=== PATIENT | male | born 1965 | race Caucasian/White ===

== ENCOUNTER 2024-01-12 09:00 | Emergency (ER) | payer OTHER, BC, SELFPAY ==
--- NOTE | ~2024-01-12 | XR_ITS ---
EXAMINATION: XR HAND, RIGHT CLINICAL INFORMATION: Third finger laceration. COMPARISON: None available. TECHNIQUE: PA, lateral, and oblique views of the right hand. FINDINGS: Soft tissue swelling and irregularity overlies the tip of the third digit but there is no evidence for an underlying radiopaque foreign body, fracture, dislocation or destructive process. Healed fractures of the fourth and fifth metacarpals incidentally noted. There is advanced degenerative change at the first CMC joint. XR/XR hand RT min 3V IMPRESSION: Soft tissue alterations as described without an acute fracture.
[2024-01-12 09:19] VITALS: BP 187/105; PULSE 79; RESP 19; TEMP 36.6; O2SAT 98; BMI 34.7
--- NOTE | 2024-01-12 09:41 | ED_ITS ---
HPI - Wound/Laceration General Chief Complaint: Wound/Laceration Stated Complaint: Finger lac Time Seen by Provider: 01/12/24 09:28 Source: patient Mode of arrival: ambulatory Limitations: no limitations History of Present Illness HPI narrative: 58 yo right hand dominant male presents to the ER for evaluation of a laceration to the right middle finger at work just prior to arrival. He works for a [employer], an [employer] and A piece of glass cut the distal portion of his right middle finger. States there was a lot of bleeding and they use the 1st aid kit with a clotting powder which helps stop the bleeding. He denies any numbness or tingling but has pain in the finger. He is able to fully extend and bend the finger. he has not on any blood thinners. Does not think there is any piece of glass stuck in the wound itself. Onset (ago): hour(s) Extremity Location: right: hand ( Third digit) Place: work Patient tetanus UTD: Yes Context: accidental Associated symptoms: pain Treatments prior to arrival: bandage Related Data Previous Rx's ?Medication ?Instructions ?Recorded ibuprofen 600 mg tablet 600 mg PO Q8H PRN pain #14 tabs 01/12/24 Allergies Allergy/AdvReac Type Severity Reaction Status Date / Time No Known Allergies Allergy Verified 01/12/24 09:20 Review of Systems Review of Systems: Yes all other systems are reviewed and are negative [facility] Social History Social History Advance Directives: No Advance Directives Information Provided: No Physical Exam Vital Signs: Vital Signs: Last Vital Signs Temp 98.2 F 01/12/24 11:46 Pulse 80 01/12/24 11:46 Resp 18 01/12/24 11:46 BP 150/80 H 01/12/24 11:46 Pulse Ox 99 01/12/24 11:46 O2 Del Method Room Air 01/12/24 11:46 BMI result Body Mass Index 34.7 Appearance: Alert. Oriented X3. No acute distress. HEENT: normal inspection CVS: Normal heart rate and rhythm. Pulses normal. Respiratory: No respiratory distress. Skin: Skin warm and dry. Normal skin color. Normal skin turgor. No rashes. Extremities: right hand with a an irregularly shaped proximally 2 cm skin flap on the palmar surface and lateral aspect with some active oozing, scabbing and dried clotting material noted around the wound. Full range of motion. Neurovascularly intact. Neuro: Oriented X 3. No motor deficit. No sensory deficit. Medications Administered Discontinued Medications Generic Name Dose Route Start Last Admin Trade Name Myles PRN Reason Stop Dose Admin Acetaminophen 975 mg 01/12/24 10:56 01/12/24 11:10 Acetaminophen 325 Mg Tablet PO 01/12/24 10:57 975 mg ONCE ONE Administration Ibuprofen 600 mg 01/12/24 10:56 01/12/24 11:10 Ibuprofen 600 Mg Tablet PO 01/12/24 10:57 600 mg ONCE ONE Administration Lidocaine HCl 10 ml 01/12/24 09:39 01/12/24 10:26 Lidocaine Hcl 1 % Mpf 5 Ml Vial SUBCUT 01/12/24 09:40 10 ml ONCE ONE Administration Medical Decision Making Medical Decision Making MDM Narrative: 4-year-old male, right-hand dominant who presents to the ER for evaluation of a irregular laceration to the distal portion of his right middle finger sustained on a piece of glass at work today. He is neurovascularly intact, slight bleeding on arrival when the wound was irrigated and cleansed. The clotting powder was able to be removed with scrub brush. Wound was soaked in a combination of saline and Betadine. No visible foreign bodies. Wound was explored. X-ray show no visible foreign body, no fracture appreciated. He is up-to-date on his vaccine. Seven sutures were used to close the wound with adequate wound approximation. We discussed wound care and signs and symptoms of infection. No need for antibiotics today. We discussed symptomatic management of pain with rest, ice, elevation, NSAIDs. Follow-up with his doctor when he gets home to [place] tomorrow. Stable for discharge home. Differential Diagnosis Differential Diagnoses: The differential diagnosis associated with the presentation includes Superficial laceration, deep laceration, open fracture, tendon laceration Independent Interpretation I performed an independent interpretation of an: Plain X-Ray Interpretation: No visible fracture or foreign body. Radiology Impression Discussion of test interpretation with radiology: I have reviewed the radiologist's reading. Radiologist Impression: EXAMINATION: XR HAND, RIGHT CLINICAL INFORMATION: Third finger laceration. COMPARISON: None available. TECHNIQUE: PA, lateral, and oblique views of the right hand. FINDINGS: Soft tissue swelling and irregularity overlies the tip of the third digit but there is no evidence for an underlying radiopaque foreign body, fracture, dislocation or destructive process. Healed fractures of the fourth and fifth metacarpals incidentally noted. There is advanced degenerative change at the first CMC joint. XR/XR hand RT min 3V IMPRESSION: Soft tissue alterations as described without an acute fracture. External Record Review External record reviewed: Outpatient record and Prior outpatient labs Prescription Management I considered prescription management with: Pain Medication and Antibiotic Procedures Laceration Laceration 1: Site: hand Side (If applicable): right Size (cm): 2 Description: flap and irregular Depth: involves muscle layer Local Anesthetic: lidocaine 1% Pre-repair: wound explored, irrigated extensively and deep structures intact Skin layer closed with: nylon Size (cm): 4-0 Number of sutures: 7 Technique: simple, interrupted Nerve Block Nerve Block 1: Time out performed: Yes Local Anesthetic: lidocaine 1% Amount of anesthesia used (mL): 5 Side: right Nerve Blocks: digital Procedure Successful: Yes Patient Tolerated Procedure: well and no complications Complications: none Critical Care Time Critical Care Time Critical Care Time: No Discharge Plan Discharge Clinical Impression: Finger laceration Qualifiers: Encounter type: initial encounter Finger: middle finger Damage to nail status: without damage Foreign body presence: without foreign body Laterality: right Qualified Code(s): S61.212A - Laceration without foreign body of right middle finger without damage to nail, initial encounter Patient Disposition: Home, Self-Care Instructions: Finger Laceration (ED) Additional Instructions: 7 stitches were used to close your wound today You will need your stitches out in 7-10 days. See you doctor for this or come back to the ER and we will remove them. Do not get wet for 48 hours, after that you can briefly wash with soap and water then pat dry. Keep wound clean and covered. Allow open to air for several hours per day. Do not submerge in water, no swimming. Take the prescribed ibuprofen as needed for pain. Elevate and ice as needed for pain and swelling If you develop signs of infection including increased pain, swelling, redness or drainage of pus come back to the ER for further evaluation. Prescriptions: New ibuprofen 600 mg tablet 600 mg PO Q8H PRN (Reason: pain) Qty: 14 0RF Interventions: ED Discharge Assessment Last Done: 01/12/24 11:46 Discharge Date/Time: 01/12/24 11:46 Print Language: Turkish
[2024-01-12] MEDS: Lidocaine HCl 1 % MPF 5 ML VIAL 10 ML SUBCUT (10:26)
[2024-01-12] MEDS: Acetaminophen 325 MG TABLET 975 MG PO (11:10)
[2024-01-12] MEDS: Ibuprofen 600 MG TABLET PO (11:10)
[2024-01-12 11:46] VITALS: BP 150/80; PULSE 80; RESP 18; TEMP 36.8; O2SAT 99
== END 2024-01-12 11:46 | disposition home or self-care (01) ==
PROVIDERS: Emergency Provider Emergency Medicine
DX: S61.212A Laceration without foreign body of right middle finger without damage to nail, initial encounter (principal); M79.641 Pain in right hand; W25.XXXA Contact with sharp glass, initial encounter; Y93.9 Activity, unspecified; Y92.9 Unspecified place or not applicable; Y99.0 Civilian activity done for income or pay
CPT/HCPCS: 12041; 73130; 99283; 99284